=== PATIENT | male | born 1995 | race Caucasian/White ===

== ENCOUNTER 2023-02-09 15:05 | Emergency (ER) | payer SELFPAY ==
[2023-02-09 15:20] VITALS: BP 155/105; PULSE 104; RESP 18; TEMP 36.6; O2SAT 97; BMI 39.4
--- NOTE | 2023-02-09 16:38 | W.ED.GENADLT ---
HPI - General Adult General: Chief complaint: General Medical Stated complaint: Swollen Tonsils Time Seen by Provider: 02/09/23 16:28 History of Present Illness: Patient is a 27-year-old male who comes to the ED with a sore throat. Symptoms started approximately week ago. Patient states he was exposed to somebody little over a week ago that had strep throat. Sore throat has progressed leg and worse over the past week. Pain and swelling is on left side of throat and tonsil region. He also is having some left neck and lymph node swelling. Denies any fevers, chills, nausea/vomiting, shortness of breath, cough, nasal congestion or drainage, bladder or bowel symptoms. Associated symptoms: Deny chest pain, dyspnea, headache(s), nausea, rash, palpitations or vomiting Review of Systems Const: Denies: fever(s), chills or fatigue Eyes: Denies: change in vision or eye discomfort ENMT: Reports: throat pain and odynophagia; Denies: nasal discharge or nasal congestion Card: Denies: chest pain, palpitations, edema, swelling of feet/ankles, dyspnea on exertion or orthopnea Resp: Denies: dyspnea, productive cough or non-productive cough GI: Denies: abdominal pain, nausea, vomiting, diarrhea, constipation or hematochezia : Denies: flank pain, difficulty urinating, dysuria or hematuria Musc: Denies: neck pain, back pain or extremity swelling Skin/Breast: Denies: rash or new lesions Neuro: Denies: headache(s), numbness in extremities or weakness in extremities PFS ED PFSH: Medical History (Updated 02/10/23 @ 11:12 by DEMOND Daniel) No pertinent family history Surgical History (Updated 02/10/23 @ 11:12 by DEMOND Daniel) No pertinent past surgical history Social History Smoking and tobacco status: current every day smoker Physical Exam Const: COMMON NORMALS: patient oriented x3 HENMT: COMMON NORMALS: normocephalic HEAD & SCALP: normocephalic MOUTH: Normal oral and palatal mucosa present THROAT: uvula midline, abnormal tonsil left erythema and hypertrophy 3+ and posterior oropharynx abnormal erythema Neck/C-Spine: COMMON NORMALS: supple GENERAL: Yes normal visual inspection Lymph: LYMPHATIC: lymphadenopathy left anterior cervical large, soft and tender 1.5 cm Resp: COMMON NORMALS: normal respiratory effort, No retractions, No use of accessory muscles and clear to auscultation bilaterally AUSCULTATION: clear to auscultation bilaterally Cardio: COMMON NORMALS: regular rate, regular rhythm, S1 normal heart sound present, S2 normal heart sound present, No gallops present (Cardio), No clicks present (Cardio), No murmurs present (Cardio) and Peripheral pulses 2+ throughout RATE: regular rate RHYTHM: regular rhythm HEART SOUNDS: S1 normal heart sound present and S2 normal heart sound present PERIPHERAL PULSES: Peripheral pulses 2+ throughout GI: COMMON NORMALS: Normal to inspection, nondistended, normoactive bowel sounds present, Soft to palpation, non-tender and no masses PALPATION: Yes Soft to palpation : COMMON NORMALS: Yes no CVA tenderness BLADDER/KIDNEY EXAM: Yes no CVA tenderness Back/Pelvis: COMMON NORMALS: no CVA tenderness Extremity: COMMON NORMALS: normal to inspection Neuro: COMMON NORMALS: patient oriented x3 GAIT: Yes Normal gait present Skin: GENERAL SKIN EXAM: dry skin Course Vital Signs: Vital signs: Vital Signs Temperature 97.9 F 02/09/23 15:20 Pulse Rate 100 02/09/23 17:28 Respiratory Rate 18 02/09/23 17:28 Blood Pressure 132/90 02/09/23 17:28 Pulse Oximetry 98 02/09/23 17:28 Oxygen Delivery Me thod 02/09/23 17:28 [facility] - General Adult Medical Decision Making Patient is a 27-year-old male who comes to the ED with a sore throat. Symptoms started approximately week ago. Patient states he was exposed to somebody little over a week ago that had strep throat. Sore throat has progressed leg and worse over the past week. Pain and swelling is on left side of throat and tonsil region. He also is having some left neck and lymph node swelling. Denies any fevers, chills, nausea/vomiting, shortness of breath, cough, nasal congestion or drainage, bladder or bowel symptoms. Vitals are stable and patient is afebrile. Patient has some posterior oropharynx erythema and a large and erythemic left tonsil. He also has a soft large and tender 1.5 cm enlarged lymph node of the left anterior cervical chain. Rest of exam is benign. Strep came back negative but given patient's clinical appearance I Anahy treat him with an antibiotic. He was given a dose of antibiotic here in the ED and a shot of Decadron. Told to follow-up with his PCP within the next 3 to 5 days for reevaluation. Strict return to ED precautions given. Patient was discharged home with a prescription for antibiotic. Patient understood and agreed with plan. Lab Data Laboratory Results Group A Strep Rapid Negative (Negative) 02/09/23 16:49 Discharge Plan Discharge Patient Disposition: Home Clinical Impression: Pharyngitis Qualifiers: Pharyngitis/tonsillitis etiology: unspecified etiology Qualified Code(s): J02.9 - Acute pharyngitis, unspecified Acute infective tonsillitis Qualifiers: Pharyngitis/tonsillitis etiology: unspecified etiology Qualified Code(s): J03.90 - Acute tonsillitis, unspecified Condition: Stable Prescriptions: New clindamycin HCl 150 mg capsule 300 mg PO QID 10 Days Qty: 80 0RF No Action povidone-iodine [Betadine Swabsticks] 10 % swab 1 applic topical ONCE Qty: 150 0RF lidocaine (PF) 10 mg/mL (1 %) solution 10 mg SUBCUT ONCE Qty: 10 0RF cephalexin 500 mg capsule 1,000 mg PO BID 10 Days Qty: 40 0RF hydrocodone-acetaminophen 5-325 mg tablet 1 tab PO Q8H PRN (Reason: pain) 3 Days Qty: 10 0RF Discharge Orders: Discharge ED (Routine); Ordered 02/09/23 Ordered By: Tab Taylor Discharge Diet: Regular Discharge Activity: Increase activity as tolerated Patient Instructions: Pharyngitis (ED), Tonsillitis (ED) Activity Restrictions/Additional Instructions: Follow-up with medical provider as directed next 3 to 5 days for reevaluation. Take medications as prescribed. Return to the ER or your medical provider if condition worsens. Any trouble breathing. Please read and understand discharge instructions. Thank you for choosing [facility] for your healthcare needs today. Please realize this is an emergency room and that we are providing you with a medical screening exam and this may not be complete and all inclusive of all the testing and or work up that you may need to determine your ailment or severity of your illness. It is very important that you follow up as instructed or that you return to the Emergency Department should you have concerns or if your condition changes or worsens in any way. Coding Level of Care Code ED [employer] Dean for Kristine Mckenzie
[2023-02-09 17:09] LABS: Rapid Strep A Test Negative (Negative)
[2023-02-09 17:15] VITALS: PULSE 96; RESP 20; O2SAT 97
[2023-02-09] MEDS: dexamethasone 10 mg/mL INJ IM (17:15)
[2023-02-09] MEDS: clindamycin 150 mg Capsule 300 MG PO (17:27)
[2023-02-09 17:28] VITALS: BP 132/90; PULSE 100; RESP 18; O2SAT 98
== END 2023-02-09 17:29 | disposition home or self-care (01) ==
PROVIDERS: Emergency Provider Physician Assistant
DX: J03.90 Acute tonsillitis, unspecified (principal); F17.210 Nicotine dependence, cigarettes, uncomplicated
CPT/HCPCS: 36415; 87081; 87880; 96372; 99284; J1100

== ENCOUNTER 2023-04-02 22:00 | Emergency (ER) | payer SELFPAY ==
[2023-04-02 22:02] VITALS: BP 146/81; PULSE 128; RESP 16; TEMP 38.9; O2SAT 97; BMI 38.7
--- NOTE | 2023-04-02 22:48 | CTR_ITS ---
PROCEDURE INFORMATION: Exam: CT Neck With Contrast Exam date and time: 04/02/2023 10:59 PM Age: 27 years old Clinical indication: Mass, lump, or swelling in neck; Left; Additional info: Left neck swelling, uvular deviation TECHNIQUE: Imaging protocol: Computed tomography of the neck with contrast. Radiation optimization: All CT scans at this facility use at least one of these dose optimization techniques: automated exposure control; mA and/or kV adjustment per patient size (includes targeted exams where dose is matched to clinical indication); or iterative reconstruction. Contrast material: OMNI 350; Contrast volume: 80 ml; Contrast route: INTRAVENOUS (IV); REPORTING DATA: Count of CT and Cardiac NM exams in prior 12 months: This patient has received 0 known CTs and 0 known cardiac nuclear medicine studies in the 12 months prior to the current study. COMPARISON: CR XR ribs LT mn 3V w CXR1V [id number] 11/08/2017 9:43 PM RADIATION DOSE METRICS: Total DLP (mGy-cm): 362.74 FINDINGS: Pharynx: There is diffuse crue-lnkxtiy-gran-right tonsillar prominence and swelling. This involves the nasopharynx mucosa as well throughout. Larynx: No evidence for epiglottitis. Prevertebral and retropharyngeal spaces: Unremarkable. Salivary glands: Within normal limits. Glands are normal in size. Thyroid: The thyroid is not enlarged. No suspicious nodules are apparent. Lymph nodes: There is severe, bulky twbb-ptuvhxz-wfmv-right cervical lymphadenopathy, especially in the left anterior and posterior chain. Nodes measure up to about 4 cm. Trachea: Visualized trachea is unremarkable. Lungs: Unremarkable as visualized. Bones/joints: Unremarkable. No acute fracture. Soft tissues: Unremarkable. No significant soft tissue swelling. Tongue piercing artifact. CT/CT neck w con* [id number] IMPRESSION: 1. Very severe tonsillitis with diffuse pharyngitis. This causes local extensive mass effect. 2. Severe bulky ofjs-lcmrdnk-pjyp-right cervical lymphadenopathy. Based on size these nodes, recommend at least clinical follow-up. 3. No rim enhancing abscess or epiglottitis noted.
[2023-04-02 23:09] VITALS: BP 144/73; PULSE 138; RESP 18; O2SAT 98
--- NOTE | 2023-04-02 23:11 | ED_ITS ---
HPI - Fever General: Chief Complaint: Fever Stated Complaint: pain Time Seen by Provider: 04/02/23 22:08 Source: patient History of Present Illness: 27-year-old male with fever chills, and mainly left-sided throat pain. He has painful swallowing he evidently did not know he had a fever. He denies significant cough. He was seen a couple months ago with fever and throat pain. MD elicited complaint: fever Measured temperature: 102 F Relieving factors: nothing Associated symptoms: Reports chills and sore throat; Deny abdominal pain, chest pain, confusion, cough, diarrhea, dysuria, headache(s), rhinorrhea, short of breath or vomiting Treatments prior to arrival fever: ibuprofen Review of Systems Const: Reports: chills ENMT: Reports: throat pain, enlarged tonsils and odynophagia; Denies: hoarseness Card: Denies: chest pain Resp: Denies: dyspnea, productive cough or non-productive cough GI: Denies: abdominal pain, vomiting or diarrhea : Denies: dysuria Neuro: Denies: headache(s) or confusion PFS ED PFSH: Medical History No pertinent family history Surgical History No pertinent past surgical history Social History Smoking and tobacco status: current every day smoker Physical Exam Const: COMMON NORMALS: no acute distress GENERAL APPEARANCE: cooperative; not ill appearing and not frail appearing HENMT: COMMON NORMALS: normocephalic, atraumatic and Normal external nose pre sent HEAD & SCALP: normocephalic and atraumatic FACE & SINUS: normal facial exam and face symmetric NOSE: Normal external nose present THROAT: abnormal tonsil bilateral and peritonsillar mass left Eye: COMMON NORMALS: Equal, round and reactive pupils present and EOMs intact bilaterally PUPIL: Yes Equal, round and reactive pupils present Neck/C-Spine: GENERAL: Yes trachea midline Chest: CHEST: Yes Symmetrical chest wall rise Resp: COMMON NORMALS: normal respiratory effort, No retractions, No use of accessory muscles and clear to auscultation bilaterally AUSCULTATION: clear to auscultation bilaterally Cardio: COMMON NORMALS: regular rhythm RATE: tachycardic RHYTHM: regular rhythm GI: COMMON NORMALS: Normal to inspection, nondistended, normoactive bowel sounds present Extremity: COMMON NORMALS: no pedal edema Neuro: CORNEL COMA SCALE: document GCS findings Cornel coma scale eye opening: Spontaneous Cornel coma scale verbal response: Orientated Cornel coma scale motor response: Obey commands Sylvia coma scale total score: 15 SENSORY EXAM: Yes extremities (intact) Psych: COMMON NORMALS: speech normal SPEECH: Yes normal speech Skin: COMMON NORMALS: no rashes or lesions noted GENERAL SKIN EXAM: no rashes or lesions noted Course Vital Signs: Vital signs: Vital Signs Temperature 99.0 F 04/03/23 00:50 Pulse Rate 110 H 04/03/23 00:50 Respiratory Rate 18 04/03/23 00:50 Blood Pressure 117/57 04/03/23 00:50 Pulse Oximetry 90 04/03/23 00:50 Oxygen Delivery Me thod Room Air 04/02/23 23:09 MDM - Fever Medical Decision Making CT shows severe tonsillitis with diffuse pharyngitis and bulky left greater than right cervical lymphadenopathy. Patient is getting dexamethasone, clindamycin, etc. Given severity, and recurrence, we will ask ENT to see him in follow-up. Lab Data 04/02/23 22:18 04/02/23 22:[address] 04/02/23 22:48 IMPRESSION: 1. Very severe tonsillitis with diffuse pharyngitis. This causes local extensive mass effect. 2. Severe bulky cgsd-oeymwnk-tgcu-right cervical lymphadenopathy. Based on size these nodes, recommend at least clinical follow-up. 3. No rim enhancing abscess or epiglottitis noted. Laboratory Results WBC 16.6 10^3/uL (4.0-10.0) H 04/02/23 22:18 RBC 5.29 10^6/uL (4.1-5.3) 04/02/23 22:18 Hgb 15.3 g/dL (11.7-16.6) 04/02/23 22:18 Hct 46.4 % (42.0-52.0) 04/02/23 22:18 MCV 87.7 fl (80-94) 04/02/23 22:18 MCH 28.9 pg (28.0-34.0) 04/02/23 22:18 MCHC 33.0 g/dL (30.0-36.0) 04/02/23 22:18 RDW 13.2 % (12.1-15.1) 04/02/23 22:18 Plt Count 337 10^3/cmm (130-400) 04/02/23 22:18 MPV 10.3 fL (7.4-10.4) 04/02/23 22:18 Neut % (Auto) 69.0 % 04/02/23 22:18 Lymph % (Auto) 18.5 % 04/02/23 22:18 [place] % (Auto) 9.8 % 04/02/23 22:18 Eos % (Auto) 1.6 % 04/02/23 22:18 Baso % (Auto) 0.4 % 04/02/23 22:18 Neut # (Auto) 11.45 10^3/uL (1.8-7.7) H 04/02/23 22:18 Lymph # (Auto) 3.1 10^3/uL (0.8-4.8) 04/02/23 22:18 [place] # (Auto) 1.6 10^3/uL (0.2-0.9) H 04/02/23 22:18 Eos # (Auto) 0.3 10^3/uL (0.0-0.8) 04/02/23 22:18 Baso # (Auto) 0.1 10^3/uL (0.0-0.1) 04/02/23 22:18 Nucleated RBC % (auto) 0 % 04/02/23 22:18 Nucleated RBCs # 0.0 /100WBC 04/02/23 22:18 Sodium 139 mmol/L (136-145) 04/02/23 22:18 Potassium 4.2 mmol/L (3.5-5.1) 04/02/23 22:18 Chloride 100 mmol/L (98-107) 04/02/23 22:18 Carbon Dioxide 27 mmol/L (22-29) 04/02/23 22:18 Anion Gap 16.2 (5-19) 04/02/23 22:18 BUN 12 mg/dL (6-20) 04/02/23 22:18 Creatinine 0.9 mg/dL (0.7-1.2) 04/02/23 22:18 GFR Calculation 102.0 mL/min (90-130) 04/02/23 22:18 Glucose 89 mg/dL (65-115) 04/02/23 22:18 Calculated Osmolality 287 mOsm/kg (285-295) 04/02/23 22:18 Calcium 9.3 mg/dL (8.5-10.5) 04/02/23 22:18 Total Bilirubin 0.3 mg/dL (0.15-1.2) 04/02/23 22:18 AST 17 U/L (0-40) 04/02/23 22:18 ALT 22 U/L (0-41) 04/02/23 22:18 Alkaline Phosphatase 96 U/L (40-130) 04/02/23 22:18 C-Reactive Protein 44.7 mg/L (0.0-4.9) H 04/02/23 22:18 Total Protein 8.0 g/dL (6.6-8.7) 04/02/23 22:18 Albumin 4.2 g/dL (3.5-5.2) 04/02/23 22:18 Globulin 3.8 g/dL (1.3-4.6) 04/02/23 22:18 Group A Strep Rapid Negative (Negative) 04/02/23 23:24 Discharge Plan Discharge Patient Disposition: Home Clinical Impression: Pharyngitis Condition: Stable Prescriptions: New clindamycin HCl 300 mg capsule 300 mg PO Q8H 10 Days Qty: 30 0RF Medrol (Son) 4 mg tablets,dose pack See Rx Instructions .ROUTE .COMPLEX Qty: 21 0RF Rx Instructions: orally per package directions No Action povidone-iodine [Betadine Swabsticks] 10 % swab 1 applic topical ONCE Qty: 150 0RF lidocaine (PF) 10 mg/mL (1 %) solution 10 mg SUBCUT ONCE Qty: 10 0RF cephalexin 500 mg capsule 1,000 mg PO BID 10 Days Qty: 40 0RF hydrocodone-acetaminophen 5-325 mg tablet 1 tab PO Q8H PRN (Reason: pain) 3 Days Qty: 10 0RF Discharge Orders: Discharge ED (Routine); Ordered 04/03/23 Ordered By: Alex Barrios Referrals: Collin Hahn MD [Physician] - 4-7 days Patient Instructions: Tonsillitis (ED) Activity Restrictions/Additional Instructions: Medication as directed. Salt water gargles may help as well. Case management has been contacted to set up an ENT follow-up appointment. You should hear from them this week. Stand Alone Forms: Work/School Release Coding Level of Care Code ED Furniture Inspector for Kristine Mckenzie
[2023-04-02] MEDS: iohexol 350 mg/mL 500 mL Btl (per mL) IV (23:13)
[2023-04-02] MEDS: dexamethasone 10 mg/mL INJ IVP (23:15)
[2023-04-02] MEDS: ketorolac 30 mg/mL INJ IVP (23:18)
[2023-04-02] MEDS: clindamycin 900 MG/50 ML PREMIX 100 MG IV (23:21)
[2023-04-02 23:35] LABS: Basophils # 0.1 10^3/uL (0.0-0.1); Basophils % 0.4 %; Eosinophils # 0.3 10^3/uL (0.0-0.8); Eosinophils % 1.6 %; Hematocrit 46.4 % (42.0-52.0); Hemoglobin 15.3 g/dL (11.7-16.6); Lymphocytes # 3.1 10^3/uL (0.8-4.8); Lymphocytes % 18.5 %; Mean Corpuscular Hemoglobin 28.9 pg (28.0-34.0); Mean Corpuscular Volume 87.7 fl (80-94); Mean Platelet Volume 10.3 fL (7.4-10.4); Monocytes # 1.6 10^3/uL (0.2-0.9); Monocytes % 9.8 %; Neutrophils # 11.45 10^3/uL (1.8-7.7); Nucleated Red Blood Cells % 0 %; Platelet Count 337 10^3/cmm (130-400); Red Blood Count 5.29 10^6/uL (4.1-5.3); Red Cell Distribution Width 13.2 % (12.1-15.1); White Blood Count 16.6 10^3/uL (4.0-10.0)
[2023-04-03 00:01] LABS: Alanine Aminotransferase 22 U/L (0-41); Albumin Level 4.2 g/dL (3.5-5.2); Alkaline Phosphatase 96 U/L (40-130); Anion Gap 16.2 (5-19); Aspartate Amino Transferase 17 U/L (0-40); Blood Urea Nitrogen 12 mg/dL (6-20); C Reactive Protein 44.7 mg/L (0.0-4.9); Calcium 9.3 mg/dL (8.5-10.5); Carbon Dioxide 27 mmol/L (22-29); Chloride 100 mmol/L (98-107); Globulin 3.8 g/dL (1.3-4.6); Glucose 89 mg/dL (65-115); Osmolality Calculated 287 mOsm/kg (285-295); Potassium 4.2 mmol/L (3.5-5.1); Sodium 139 mmol/L (136-145); Total Bilirubin 0.3 mg/dL (0.15-1.2)
[2023-04-03 00:16] LABS: Rapid Strep A Test Negative (Negative)
[2023-04-03 00:50] VITALS: BP 117/57; PULSE 110; RESP 18; TEMP 37.2; O2SAT 90
--- NOTE | 2023-04-03 10:10 | PC.SOCIAL ---
Addendum entered by Yohana Neal 04/18/23 08:57: Patient did attend appointment scheduled with ENT. Addendum entered by Yohana Neal 04/11/23 10:09: Patient has a follow up appointment scheduled for Friday April 14, 2023 at 8:[address] Hahn at ENT. Original Note: ENT Referral Consult received to follow up with ENT. Message sent to clinic at this time. Clinic to contact patient with appt date/time.
--- NOTE | 2023-04-12 15:48 | DCPLANNER ---
TCM called patient due to no primary care physician - no answer at this time.
== END 2023-04-03 00:55 | disposition home or self-care (01) ==
PROVIDERS: Emergency Provider Emergency Medicine
DX: J02.9 Acute pharyngitis, unspecified (principal); F17.210 Nicotine dependence, cigarettes, uncomplicated
CPT/HCPCS: 70491; 80053; 85025; 86140; 87040; 87081; 87880; 96365; 96375; 99285; J1100; J1885; J3490; Q9967

== ENCOUNTER 2023-06-23 03:14 | Emergency (ER) | payer MEDICAID, SELFPAY ==
--- NOTE | 2023-06-23 03:14 | XRR_ITS ---
PROCEDURE INFORMATION: Exam: XR Chest Exam date and time: 06/23/2023 3:21 AM Age: 28 years old Clinical indication: Other: Syncope; Prior surgery; Surgery date: 1-6 months; Surgery type: Tracheostomy. Chest port; Patient HX: Syncopal episode. History of lymphoma. TECHNIQUE: Imaging protocol: Radiologic exam of the chest. Views: 1 view. COMPARISON: CR XR ribs LT mn 3V w CXR1V [id number] 11/08/2017 9:43 PM FINDINGS: Tubes, catheters and devices: Tracheostomy tube in place at the T1 level with the distal tip projecting 5.4 cm superior to the joya. Central venous catheter tip projects over the superior vena cava. Lungs: Unremarkable. No consolidation. Pleural spaces: Unremarkable. No pleural effusion. No pneumothorax. Heart/Mediastinum: Unremarkable. No cardiomegaly. Bones/joints: Unremarkable. XR/XR chest 1V portable [id number] IMPRESSION: No evidence for acute cardiopulmonary disease.
[2023-06-23 03:15] VITALS: BP 141/57; PULSE 106; RESP 20; TEMP 37; O2SAT 92; BMI 33.4
--- NOTE | 2023-06-23 03:15 | ECG_ITS ---
[facility] Test Date: 2023-06-23 Pat Name: Abhilash Arriaga Department: Room: Gender: Male [employer] Salesperson: : 1995 Requested By: Roni Mueller Order Number: [id number] Rene MD: Vernon Perrin M.D. Measurements Intervals [place] Rate: 92 P: 46 NC: 163 QRS: 35 QRSD: 96 T: 31 QT: 347 QTc: 430 Interpretive Statements SINUS RHYTHM Compared to ECG 12/27/2014 15:43:33 Sinus arrhythmia no longer present Electronically Signed On 06-23-2023 9:24:15 CDT by Vernon Perrin M.D. [email or web address] university wexner [id number]
[2023-06-23 03:26] LABS: Glucose Point of Care 120 mg/dL (70-110)
--- NOTE | 2023-06-23 03:29 | W.ED.SYNCOPE ---
HPI - Syncope General: Chief Complaint: Syncope Stated Complaint: PASSED OUT Time Seen by Provider: 06/23/23 03:14 Source: patient and EMS Mode of arrival: EMS Limitations: no limitations History of Present Illness: 28-year-old male has a history of lymphoma he recently had a trach he has a port he is receiving chemotherapy at [facility] in [place] he had syncopal events in the past states he had got up from bed had a feeling of lightheadedness and passed out hit his head on the ground he has a mild headache he denies any chest pain no vomiting denies any worsening proving factors. Associated symptoms: Deny abdominal pain, chest pain, fever(s), headache(s) or nausea Review of Systems Const: Denies: fever(s) or chills Eyes: Denies: blurry vision or eye discomfort ENMT: Denies: throat pain or dental pain Card: Reports: syncope; Denies: chest pain Resp: Denies: dyspnea GI: Denies: abdominal pain, nausea, vomiting or diarrhea Musc: Denies: neck pain or back pain Skin/Breast: Denies: rash Neuro: Denies: headache(s) Howard/Lymph: Denies: easy bruising All/Imm: Denies: urticaria PFSH ED PFSH: Medical History No pertinent family history Surgical History No pertinent past surgical history Social History Smoking and tobacco status: current every day smoker Physical Exam Const: COMMON NORMALS: patient oriented x3 HENMT: COMMON NORMALS: normocephalic and atraumatic HEAD & SCALP: normocephalic and atraumatic Eye: COMMON NORMALS: Equal, round and reactive pupils present and EOMs intact bilaterally PUPIL: Yes Equal, round and reactive pupils present Neck/C-Spine: COMMON NORMALS: full ROM OTHER: Trach in place large mass to the left neck Chest: COMMONS NORMALS: normal inspection of the chest and normal palpation of entire chest wall Resp: COMMON NORMALS: normal respiratory effort, No retractions, No use of accessory muscles and clear to auscultation bilaterally AUSCULTATION: clear to auscultation bilaterally Cardio: COMMON NORMALS: regular rate, regular rhythm and No murmurs present (Cardio) RATE: regular rate RHYTHM: regular rhythm GI: INSPECTION: Yes normal to inspection Extremity: COMMON NORMALS: normal to inspection and full ROM Neuro: COMMON NORMALS: patient oriented x3, moves all extremities and no focal motor deficits Psych: COMMON NORMALS: mental status grossly normal, Normal thought process present and cooperative THOUGHT PROCESS: Normal thought process present Skin: COMMON NORMALS: no rashes or lesions noted and no wounds GENERAL SKIN EXAM: no rashes or lesions noted Course Vital Signs: Vital signs: Vital Signs Temperature 98.6 F 06/23/23 03:15 Pulse Rate 108 H 06/23/23 03:58 Respiratory Rate 18 06/23/23 03:58 Blood Pressure 95/63 06/23/23 03:58 Pulse Oximetry 92 06/23/23 03:58 Oxygen Delivery Me thod Room Air 06/23/23 03:58 MDM - Syncope Medical Decision Making Patient presents here after syncopal event he also had a closed head injury from the event he has been well-appearing here vitals are normal blood work head CT are normal his EKG is normal as well he feels improved he is stable for discharge he sees his oncologist next week follow-up as scheduled return if worsening. Medical Records I reviewed the patient's medical records. Lab Data I reviewed the patient's lab results. 06/23/23 03:25 06/23/23 03:25 Radiology Impressions Chest X-Ray 06/23/23 03:14 IMPRESSION: No evidence for acute cardiopulmonary disease. Head CT 06/23/23 04:27 IMPRESSION: No acute intracranial findings.There are frothy secretions in the nasopharynx. Partially visualized soft tissue fullness in the region of the adenoid tonsils and peritonsillar soft tissues, left greater than right. Laboratory Results WBC 12.9 10^3/uL (4.0-10.0) H 06/23/23 03:25 RBC 4.61 10^6/uL (4.1-5.3) 06/23/23 03:25 Hgb 13.0 g/dL (11.7-16.6) 06/23/23 03:25 Hct 38.2 % (42.0-52.0) L 06/23/23 03:25 MCV 82.9 fl (80-94) 06/23/23 03:25 MCH 28.2 pg (28.0-34.0) 06/23/23 03:25 MCHC 34.0 g/dL (30.0-36.0) 06/23/23 03:25 RDW 12.7 % (12.1-15.1) 06/23/23 03:25 Plt Count 395 10^3/cmm (130-400) 06/23/23 03:25 MPV 8.9 fL (7.4-10.4) 06/23/23 03:25 Neut % (Auto) 60.3 % 06/23/23 03:25 Lymph % (Auto) 24.2 % 06/23/23 03:25 [place] % (Auto) 10.6 % 06/23/23 03:25 Eos % (Auto) 4.0 % 06/23/23 03:25 Baso % (Auto) 0.4 % 06/23/23 03:25 Neut # (Auto) 7.77 10^3/uL (1.8-7.7) H 06/23/23 03:25 Lymph # (Auto) 3.1 10^3/uL (0.8-4.8) 06/23/23 03:25 [place] # (Auto) 1.4 10^3/uL (0.2-0.9) H 06/23/23 03:25 Eos # (Auto) 0.5 10^3/uL (0.0-0.8) 06/23/23 03:25 Baso # (Auto) 0.1 10^3/uL (0.0-0.1) 06/23/23 03:25 Nucleated RBC % (auto) 0 % 06/23/23 03:25 Nucleated RBCs # 0.0 /100WBC 06/23/23 03:25 Sodium 139 mmol/L (136-145) 06/23/23 03:25 Potassium 3.6 mmol/L (3.5-5.1) 06/23/23 03:25 Chloride 102 mmol/L (98-107) 06/23/23 03:25 Carbon Dioxide 25 mmol/L (22-29) 06/23/23 03:25 Anion Gap 15.6 (5-19) 06/23/23 03:25 BUN 14 mg/dL (6-20) 06/23/23 03:25 Creatinine 0.8 mg/dL (0.7-1.2) 06/23/23 03:25 GFR Calculation 116.0 mL/min (90-130) 06/23/23 03:25 Glucose 127 mg/dL (65-115) H 06/23/23 03:25 POC Glucose 120 mg/dL (70-110) H 06/23/23 03:22 Calculated Osmolality 290 mOsm/kg (285-295) 06/23/23 03:25 Calcium 8.8 mg/dL (8.5-10.5) 06/23/23 03:25 Total Bilirubin 0.2 mg/dL (0.15-1.2) 06/23/23 03:25 AST 13 U/L (0-40) 06/23/23 03:25 ALT 18 U/L (0-41) 06/23/23 03:25 Alkaline Phosphatase 80 U/L (40-130) 06/23/23 03:25 Total Protein 7.2 g/dL (6.6-8.7) 06/23/23 03:25 Albumin 3.3 g/dL (3.5-5.2) L 06/23/23 03:25 Globulin 3.9 g/dL (1.3-4.6) 06/23/23 03:25 EKG Data EKG 1: I personally reviewed and interpreted this EKG as follows: EKG interpretation date: 06/23/23 EKG interpretation time: 03:00 Interpretation: nsr hr [address] or t wave abnormalities qrs 98 qtc 391 Discharge Plan Discharge Patient Disposition: Home Clinical Impression: Syncope Condition: Stable Prescriptions: No Action povidone-iodine [Betadine Swabsticks] 10 % swab 1 applic topical ONCE Qty: 150 0RF lidocaine (PF) 10 mg/mL (1 %) solution 10 mg SUBCUT ONCE Qty: 10 0RF cephalexin 500 mg capsule 1,000 mg PO BID 10 Days Qty: 40 0RF hydrocodone-acetaminophen 5-325 mg tablet 1 tab PO Q8H PRN (Reason: pain) 3 Days Qty: 10 0RF Medrol (Son) 4 mg tablets,dose pack See Rx Instructions .ROUTE .COMPLEX Qty: 21 0RF Rx Instructions: orally per package directions Discharge Orders: Discharge ED (Routine); Ordered 06/23/23 Ordered By: Roni Mueller Discharge Diet: Advance as tolerated Discharge Activity: Resume usual activity Patient Instructions: Syncope (ED) Coding Level of Care Code ED Pants Presser Automatic for Kristine Mckenzie
[2023-06-23 03:36] LABS: Basophils # 0.1 10^3/uL (0.0-0.1); Basophils % 0.4 %; Eosinophils # 0.5 10^3/uL (0.0-0.8); Hematocrit 38.2 % (42.0-52.0); Lymphocytes # 3.1 10^3/uL (0.8-4.8); Lymphocytes % 24.2 %; Mean Corpuscular Hemoglobin 28.2 pg (28.0-34.0); Mean Corpuscular Volume 82.9 fl (80-94); Mean Platelet Volume 8.9 fL (7.4-10.4); Monocytes # 1.4 10^3/uL (0.2-0.9); Monocytes % 10.6 %; Neutrophils # 7.77 10^3/uL (1.8-7.7); Neutrophils % 60.3 %; Nucleated Red Blood Cells % 0 %; Platelet Count 395 10^3/cmm (130-400); Red Blood Count 4.61 10^6/uL (4.1-5.3); Red Cell Distribution Width 12.7 % (12.1-15.1); White Blood Count 12.9 10^3/uL (4.0-10.0)
[2023-06-23] MEDS: sodium chloride 0.9% 1,000 ML 999 ML IV (03:51)
[2023-06-23 03:58] VITALS: BP 95/63; PULSE 108; RESP 18; O2SAT 92
[2023-06-23 04:00] LABS: Alanine Aminotransferase 18 U/L (0-41); Albumin Level 3.3 g/dL (3.5-5.2); Alkaline Phosphatase 80 U/L (40-130); Anion Gap 15.6 (5-19); Aspartate Amino Transferase 13 U/L (0-40); Blood Urea Nitrogen 14 mg/dL (6-20); Calcium 8.8 mg/dL (8.5-10.5); Carbon Dioxide 25 mmol/L (22-29); Chloride 102 mmol/L (98-107); Globulin 3.9 g/dL (1.3-4.6); Glucose 127 mg/dL (65-115); Osmolality Calculated 290 mOsm/kg (285-295); Potassium 3.6 mmol/L (3.5-5.1); Sodium 139 mmol/L (136-145); Total Bilirubin 0.2 mg/dL (0.15-1.2); Total Protein 7.2 g/dL (6.6-8.7)
--- NOTE | 2023-06-23 04:27 | CTR_ITS ---
PROCEDURE INFORMATION: Exam: CT Head Without Contrast Exam date and time: 06/23/2023 4:36 AM Age: 28 years old Clinical indication: Injury or trauma; Fall; Blunt trauma (contusions or hematomas); Syncope and collapse; Patient HX: Patient had syncopal episode at home and fell striking head on the floor. Currently on chemotherapy for lymphoma. ; Additional info: Head injury TECHNIQUE: Imaging protocol: Computed tomography of the head without contrast. Radiation optimization: All CT scans at this facility use at least one of these dose optimization techniques: automated exposure control; mA and/or kV adjustment per patient size (includes targeted exams where dose is matched to clinical indication); or iterative reconstruction. REPORTING DATA: Count of CT and Cardiac NM exams in prior 12 months: This patient has received [address] and 0 known cardiac nuclear medicine studies in the 12 months prior to the current study. COMPARISON: CT neck w con* [id number] 04/02/2023 10:59 PM RADIATION DOSE METRICS: Total DLP (mGy-cm): 1049.08 FINDINGS: Brain: Normal. No hemorrhage. Unremarkable white matter. No mass effect. Cerebral ventricles: No ventriculomegaly. Paranasal sinuses: Visualized sinuses are unremarkable. No fluid levels. Mastoid air cells: Visualized mastoid air cells are well aerated. Pharynx: There are frothy secretions in the nasopharynx. Partially visualized soft tissue fullness in the region of the adenoid tonsils and peritonsillar soft tissues, left greater than right. This was seen on the prior CT scan of the neck dated 04/02/2023 as well. Bones/joints: Unremarkable. No acute fracture. Soft tissues: Unremarkable. CT/CT head wo con* [id number] IMPRESSION: No acute intracranial findings.There are frothy secretions in the nasopharynx. Partially visualized soft tissue fullness in the region of the adenoid tonsils and peritonsillar soft tissues, left greater than right.
[2023-06-23 05:04] VITALS: BP 134/70; PULSE 106; RESP 18; O2SAT 98
== END 2023-06-23 05:16 | disposition home or self-care (01) ==
PROVIDERS: Emergency Provider Emergency Medicine
DX: R55 Syncope and collapse (principal); F17.210 Nicotine dependence, cigarettes, uncomplicated
CPT/HCPCS: 36416; 70450; 71045; 80053; 82962; 85025; 93005; 99285; J7030